=== PATIENT | female | born 2000 | race African-American/Black ===

== ENCOUNTER 2024-09-26 10:37 | Emergency (ER) | payer MEDICAID ==
[~2024-09-26] VITALS: Ht 165.1 cm; Wt 93.0 kg
[2024-09-26 10:42] VITALS: O2SAT 99
[2024-09-26 11:02] VITALS: BP 110/74; PULSE 70; RESP 18; TEMP 36.6; O2SAT 98
== END 2024-09-26 13:00 | disposition left against medical advice (07) ==
LOC: ER 10:37
DX: J02.9 Acute pharyngitis, unspecified (principal); H92.02 Otalgia, left ear
CPT/HCPCS: 99282; A4606